=== PATIENT | female | born 1985 | race Caucasian/White ===

== ENCOUNTER 2016-11-17 05:54 | Day surgery (SDC) | payer BC ==
[2016-11-17] MEDS ORDERED: Lactated Ringers 1,000 ML IV SCH (06:30)
[2016-11-17] MEDS ORDERED: Ketamine HCl 50 MG/ML IJ ONE (08:00)
[2016-11-17] MEDS ORDERED: DIPRIVAN 200 MG/20 ML IV ONE (08:00)
[2016-11-17 08:27] VITALS: O2SAT 99
[2016-11-17 08:33] VITALS: BP 98/68
--- NOTE | 2016-11-17 08:52 | OP ---
SURGERY DATE: 11/17/16 SURGERY TIME: 657 PREOPERATIVE DIAGNOSIS: 1. CHRONIC DIARRHEA. POSTOPERATIVE DIAGNOSIS: 1. NORMAL COLON. PROCEDURE: 1. Colonoscopy. SURGEON: Dr. Michael Dang. ANESTHESIA: MAC by Colin Valderrama CRNA. SPECIMENS: None. ESTIMATED BLOOD LOSS: None. DESCRIPTION OF PROCEDURE: After informed written consent was obtained, the patient was taken to the endoscopy suite. She underwent monitored anesthesia and a digital rectal exam showed normal sphincter tone and no internal lesions. The scope was then inserted in the rectum and sequentially the entire colonic mucosa was traversed. The level of the cecum was reached and verified with direct visualization of the ileocecal valve. Upon withdrawal, careful mucosal inspection revealed no obvious mucosal abnormalities. Prep was noted to be fair. Prior to withdrawal, retroflexion was performed and was within normal limits. The scope was removed and the patient was transferred to the recovery room in excellent condition.
[2016-11-17 09:14] VITALS: PULSE 73
== END 2016-11-17 08:55 | disposition home or self-care (01) ==
LOC: SDC 05:54 → EDSTATUS 11:25
PROVIDERS: ATTEND Family Medicine
PROC: 0DJD8ZZ Inspection of Lower Intestinal Tract, Via Natural or Artificial Opening Endoscopic (ICD-10-PCS; principal; 2016-11-17)
DX: R19.7 Diarrhea, unspecified (principal)
CPT/HCPCS: 00810; 82962; J2704